=== PATIENT | female | born 1990 | race American Indian/Alaskan Native ===

== ENCOUNTER 2017-05-25 06:48 | Inpatient (IN) | payer OTHER ==
[2017-05-25] MEDS ORDERED: BRETHINE IVP PRN (07:05)
[2017-05-25] MEDS ORDERED: ePHEDrine SULFATE IV PRN (07:05)
[2017-05-25] MEDS ORDERED: XYLOCAINE 2% INFILTRATI NR (07:05)
[2017-05-25] MEDS ORDERED: BRETHINE SUB-Q PRN (07:05)
[2017-05-25] MEDS ORDERED: POLYCILLIN/NS 2 GM/100 ML 2 GM/100 ML BAG IV ONE (07:07)
--- NOTE | 2017-05-25 07:20 | History and Physical Report ---
History of Present Illness Date of examination: 05/25/17 Chief complaint: painful ctx @ 39+ weeks History of present illness: EDC Calculations by LMP: 05/30/2017 Past History : 4 Term Births: 2 Premature Births: 0 Living Children: 2 Para: 2 Mult. Births: 0 Prev : 0 Prev. attempt? 0 Aborta: 1 Elect. Ab: 0 Spont. Ab: 1 Ectopics: 0 # 1 Delivery date: 07/21/2013 Weeks Gestation: 40 Delivery type: Vaginal Anesthesia type: none Delivery location: [facility] Sex: male weight: 6 Comments: none # 2 Delivery date: 11/2014 Weeks Gestation: 4 Delivery type: SAB Comments: Chemical # 3 Delivery date: 11/02/2015 Weeks Gestation: 39+5 Delivery type: Vaginal Anesthesia type: IV medication Delivery location: [facility] Infant Sex: female weight: 7.06 Name: Gordon Comments: none Past Medical History: Reviewed history from 11/21/2012 and no changes required: Negative Past Medical History Past Surgical History: Reviewed history from 11/21/2012 and no changes required: Negative Past Surgical History Family History Summary: Reviewed history Last on 10/10/2014 and no changes required:10/04/2016 Mother (biol.) - Has Family History of Thyroid Disease - Entered On: 03/11/2015 General Comments - FH: Family History of Diabetes Family History of Hypertension No Family History of Breast Cancer No Family History of Colon Cancer No Family History of Ovarvian Cancer No Family History of DVT/PE on OCP Social History: Reviewed history from 11/21/2012 and no changes required: Patient is no e/t/d Risk Factors: Smoked Tobacco Use: Former smoker Drug use: no HIV high-risk behavior: low risk Alcohol use: no Past Medical History Abnormal PAP: negative Uterine Anomaly: negative Social Hx: Patient is no e/t/d Infection History Hx of STD: none HIV Risk Eval: low risk Genetic History Congenital Heart Defect: Mom: no Dad: no Long Disease: Mom: no Dad: no Thalassemia Mom: no Dad: no Neural Tube Defect Mom: no Dad: no Down's Syndrome Mom: no Dad: no Hernan-Sachs Mom: no Dad: no Sickle Cell Disease/Trait Mom: no Dad: no Hemophilia Mom: no Dad: no Muscular Dystrophy Mom: no Dad: no Cystic Fibrosis Mom: no Dad: no Viola Chorea Mom: no Dad: no Mental Retardation Mom: no Dad: no Fragile X Mom: no Dad: no Other Genetic/Chromosomal Disorder Mom: no Dad: no Child w/other defect Mom: no Dad: no Active Medications (reviewed today): PNV () ORTHO MICRONOR 0.35 MG ORAL TABS (NORETHINDRONE) 1 po qd Current Allergies (reviewed today): No known allergies Past History Past Medical History: other (see HPI) Past Surgical History: other (see HPI) MANAGER CLINICAL APPLICATIONS History: other (see HPI) Family/Genetic History: other (see HPI) - Obstetrical History Expected Date of Delivery: 05/30/17 Actual Gestation: 39 Week(s) 2 Day(s) : 4 Para: 2 Hx # Term Pregnancies: 2 Number of Pregnancies: 0 Number of Living Children: 2 Medications and Allergies Allergies Allergy/AdvReac Type Severity Reaction Status Date / Time No Known Allergies Allergy Verified 07/19/13 11:12 Home Medications Medication Instructions Recorded Confirmed Last Taken Type Vits96/Iron Fum/Folic 1 tab PO DAILY 07/20/13 05/25/17 05/24/17 History [ Tablet] Ferrous Sulfate [Feosol 325 MG tab] 325 mg PO QDAY 05/25/17 05/25/17 1 Month Ago History ~04/24/17 Active Meds: Active Medications Ephedrine Sulfate (Ephedrine Sulfate) 10 mg IV Q2M PRN PRN Reason: Hypotension Lactated Ringer's (Lactated Ringers) 1,000 mls @ 125 mls/hr IV DIRECT KANWAL Oxytocin/Sodium Chloride (Pitocin/Ns 20 Unit/1000ml Drip) 20 units in 1,000 mls @ 125 mls/hr IV DIRECT KANWAL Oxytocin/Sodium Chloride (Pitocin/Ns 30 Unit/500ml) 30 units in 500 mls @ 1 mls /hr IV TITR KANWAL; Protocol Ampicillin Sodium (Polycillin/Ns 2 Gm/100 Ml) 2 gm in 100 mls @ 100 mls/hr IV ONCE ONE Stop: 05/25/17 08:06 Lidocaine (Xylocaine 2%) 20 ml INFILTRATI ONCE ONE Stop: 05/25/17 07:06 Mineral Oil (Mineral Oil) 30 ml PO QHS PRN PRN Reason: Constipation Terbutaline Sulfate (Brethine) 0.25 mg SUB-Q ONCE PRN PRN Reason: Hyperstimulation/Hypertonicity Terbutaline Sulfate (Brethine) 0.25 mg IVP ONCE PRN PRN Reason: Hyperstimulation/Hypertonicity Review of Systems All systems: negative - Vital Signs Vital signs: Vital Signs Temp Resp 98.0 F 05/25/17 07:10 05/25/17 07:10 Temp Pulse Resp BP Pulse Ox 98.0 F 05/25/17 07:10 05/25/17 07:10 - Physical Exam Breasts: Positive: normal Cardiovascular: Regular rate Lungs: Positive: Clear to auscultation, Normal air movement Abdomen: Positive: normal appearance Genitourinary (Female): Positive: normal external genitalia, normal perenium Vulva: both: normal Vagina: Positive: normal moisture Uterus: Positive: normal size, normal contour Anus/Rectum: Positive: normal perianal skin Extremities: Positive: normal Deep Tendon Reflex Grade: Normal +2 - Obstetrical FHR: auscultation normal, category 1 Uterine Contraction Monitor Mode: External Cervical Dilatation: 8.5 Cervical Effacement Percentage: 100 Uterine Contraction Frequency (min): 2-3 Uterine Contraction Duration: 60 Uterine Contraction Pattern: Regular Uterine Tone Measurement Phase: Contraction Uterine Contraction Intensity: Strong/Firm Results All other labs normal. Assessment and Plan 26y/o @ 39+2 weeks arrived in labor 8-9cms. Admission orders in EMR. Anticipate - Patient Problems (1) GBS (group B Streptococcus carrier), +RV culture, currently Current Visit: Yes Status: Acute (2) Active labor at term Current Visit: Yes Status: Acute (3) 39 weeks gestation of Current Visit: Yes Status: Acute
[2017-05-25 07:27] LABS: Hemoglobin 11.1 gm/dl (10.1-14.3); Mean Corpuscular HGB Conc 33 % (30-34); Mean Corpuscular Volume 74 fl (79-97); Platelet Count 357 K/mm3 (140-440); Red Blood Count 4.57 M/mm3 (3.65-5.03); Red Cell Distribution Width 14.8 % (13.2-15.2)
[2017-05-25 07:31] LABS: Mean Corpuscular Hemoglobin 24 pg (28-32)
[2017-05-25] MEDS ORDERED: PITOCin/NS 30 UNIT/500ML 30 UNITS/500 ML BAG IV SCH (08:00)
[2017-05-25] MEDS ORDERED: PITOCin/NS 20 UNIT/1000ML DRIP 20 UNITS/1,000 ML BAG IV SCH ×2 (08:00→10:17)
[2017-05-25] MEDS ORDERED: LACTATED RINGERS 1,000 ML IV SCH (08:00)
--- NOTE | 2017-05-25 08:03 | Procedure Note ---
OB Delivery Note - Delivery Date of Delivery: 05/25/17 ( female) Flute Teacher: BROOK BECERRA Estimated blood loss: 200cc - Vaginal Delivery presentation: vertex Delivery position: OA Intrapartum events: none Delivery induction: none Delivery monitor: external FHT, external uterine Route of delivery: Delivery placenta: spontaneous Delivery cord: 3 umbilical vessels, other (short cord) Episiotomy: none Delivery laceration: 1st degree Delivery repair: vicryl Anesthesia: local Delivery comments: female infant del over intact perineum, infant skin to skin. 3 vessel cord clamped and cut, cord blood collected. Placenta del intact and complete. 1st degree lac repaired. EBL 200, apgars 9/9, wt 6#7oz. Mother and infant remain LDR stable. - A at 1 minute: 9 at 5 minutes: 9 Gender: Female (6#7)
[2017-05-25] MEDS ORDERED: MILK OF MAGNESIA PO PRN (10:17)
[2017-05-25] MEDS ORDERED: DULCOLAX PR PRN (10:17)
[2017-05-25] MEDS ORDERED: ZOFRAN IV PRN (10:17)
[2017-05-25] MEDS ORDERED: PHENERGAN PO PRN (10:17)
[2017-05-25] MEDS ORDERED: BENADRYL PO PRN (10:17)
[2017-05-25] MEDS ORDERED: DERMOPLAST TP PRN (10:17)
[2017-05-25] MEDS ORDERED: SODIUM CHLORIDE FLUSH SYRINGE 10 ML IV NR (10:17)
[2017-05-25] MEDS ORDERED: LANSINOH TP PRN (10:17)
[2017-05-25] MEDS ORDERED: NORCO 5/325 PO PRN (10:17)
[2017-05-25] MEDS ORDERED: TUCKS PAD TP PRN (10:17)
[2017-05-25] MEDS ORDERED: TYLENOL PO PRN (10:17)
[2017-05-25] MEDS: MOTRIN PO SCH ×3 (10:50→23:26)
[2017-05-25] MEDS: PRENATAL VITAMIN PO SCH (10:51)
[2017-05-25] MEDS: COLACE PO SCH (21:05)
[2017-05-25] MEDS ORDERED: MINERAL OIL PO PRN (22:00)
[2017-05-25 22:43] LABS: Hematocrit 29.2 % (30.3-42.9); Hemoglobin 9.4 gm/dl (10.1-14.3)
[2017-05-26] MEDS: MOTRIN PO SCH ×4 (05:11→23:33)
[2017-05-26] MEDS ORDERED: BOOSTRIX IM ONE (06:00)
--- NOTE | 2017-05-26 06:46 | Discharge Summary ---
Providers - Providers Date of Admission: 05/25/17 06:49 Date of discharge: 05/26/17 (pt desires d/c Will need to be 48 hrs due to GBS+; Will write for in the AM 05-27-17) Attending physician: LAINA CHARLES 05/25/17 10:17 Consult to Strategy Consultant [CONS] Routine Reason For Exam: assistance with , SNS Primary care physician: LAINA CHARLES Hospitalization Reason for admission: active labor Delivery: Episiotomy: none Laceration: none Incision: normal Other procedures: none complications: none Discharge diagnosis: IUP at term delivered [place] baby: female Hospital course: uncomplicated vaginal delivery Pt w/o complaint VSS FF below umb Lochia scant Perineum intact H&H 11/19 drop r/ t blood loss from delivery Pt is w/o s/sx of anemia Doing well s/o vag delivery. RTO 4 weeks PP care Condition at discharge: Good Disposition: DC-01 TO HOME OR SELFCARE - Discharge Diagnoses (1) (normal spontaneous vaginal delivery) Status: Acute Comment: RTO 4 weeks PP care Plan - Discharge Medications Prescriptions: Docusate Sodium [Colace] 100 mg PO BID PRN #60 capsule PRN Reason: Constipation Ferrous Sulfate [Feosol 325 MG tab] 325 mg PO BID #60 tablet - Provider Discharge Summary Activity: routine, no sex for 6 weeks, no heavy lifting 4 weeks, no strenuous exercise Diet: routine Instructions: routine Additional instructions: [] Smoking cessation referral if applicable(refer to patient education folder for contact #) [] Refer to [facility] Booklet Call your doctor immediately for: * Fever > 100.5 * Heavy vaginal bleeding ( >1 pad per hour) * Severe persistent headache * Shortness of breath * Reddened, hot, painful area to leg or breast * Drainage or odor from incision. * Keep incision clean and dry at all times and follow doctor's instructions regarding bathing/showering - Follow up plan Follow up: LAINA CHARLES MD [Primary Care Provider] - 06/24/17 (Congratulations! Please call [phone] to schedule your visit in 4 weeks. Take medications as prescribed. Call with concerns.)
[2017-05-26] MEDS ORDERED: DEPO-PROVERA (CONTRACEPTION) IM ONE (06:50)
[2017-05-26] MEDS: PRENATAL VITAMIN PO SCH (13:30)
[2017-05-26] MEDS: COLACE PO SCH ×2 (13:30→21:15)
[2017-05-27] MEDS: MOTRIN PO SCH (05:22)
[2017-05-27 11:09] VITALS: BP 121/85
== END 2017-05-27 10:35 | disposition home or self-care (01) | DRG 775 ==
LOC: TRG 06:48 → LD 06:49 → TRG 06:49 → OB 10:09
PROVIDERS: ADMIT Obstetrics & Gynecology; ATTEND Obstetrics & Gynecology
PROC: 10E0XZZ Delivery of Products of Conception, External Approach (ICD-10-PCS; principal; 2017-05-25)
PROC: 0HQ9XZZ Repair Perineum Skin, External Approach (ICD-10-PCS; 2017-05-25)
PROC: 3E0234Z Introduction of Serum, Toxoid and Vaccine into Muscle, Percutaneous Approach (ICD-10-PCS; 2017-05-26)
DX: O69.3XX0 Labor and delivery complicated by short cord, not applicable or unspecified (principal); O99.824 Streptococcus B carrier state complicating childbirth; O70.0 First degree perineal laceration during delivery; Z37.0 Single live birth; Z83.3 Family history of diabetes mellitus; Z82.49 Family history of ischemic heart disease and other diseases of the circulatory system; Z87.891 Personal history of nicotine dependence; Z3A.39 39 weeks gestation of pregnancy; Z23 Encounter for immunization
CPT/HCPCS: 36415; 85014; 85018; 85027; 86592; 86850; 86900; 86901; 90471; 90715; 99211; G0463; J0290; J2590